=== PATIENT | male | born 1930 | race Caucasian/White ===

== ENCOUNTER 2016-08-30 13:03 | Emergency (ER) | payer MEDICARE, OTHER ==
[~2016-08-30] VITALS: Ht 182.9 cm; Wt 114.9 kg
[~2016-08-30 13:03] MED LIST: ASPI-496 PO; ATOR80TA PO; CLOP75TA22 PO; CYAN10005 PO; ERGO500017 PO; EZET10TA3 PO; FAMO20TA7 PO; HYDR-3241 PO; HYDR12.53 PO; MESA1.2T PO; METO25TA35 PO; POLY17PO5 PO
[2016-08-30] MEDS ORDERED: IRBE300T40 PO (13:34)
[2016-08-30 14:26] VITALS: BP 155/92
== END 2016-08-30 14:29 | disposition home or self-care (01) ==
LOC: ED 13:38
DX: I10 Essential (primary) hypertension (principal); K21.9 Gastro-esophageal reflux disease without esophagitis; E78.5 Hyperlipidemia, unspecified; Z86.718 Personal history of other venous thrombosis and embolism; Z90.49 Acquired absence of other specified parts of digestive tract
CPT/HCPCS: 36415; 80047; 93005

== ENCOUNTER 2016-08-31 09:40 | Emergency (ER) | payer MEDICARE, OTHER ==
[~2016-08-31] VITALS: Ht 182.9 cm; Wt 114.4 kg
[~2016-08-31 09:40] MED LIST changes: +IRBE300T40 PO
[2016-08-31 11:30] VITALS: BP 174/80
== END 2016-08-31 11:32 | disposition home or self-care (01) ==
LOC: ED 10:52
DX: I10 Essential (primary) hypertension (principal); E78.5 Hyperlipidemia, unspecified; K21.9 Gastro-esophageal reflux disease without esophagitis; Z90.49 Acquired absence of other specified parts of digestive tract; Z79.82 Long term (current) use of aspirin; Z87.891 Personal history of nicotine dependence
CPT/HCPCS: 93005; 99283

== ENCOUNTER 2016-09-28 10:15 | Emergency (ER) | payer MEDICARE, OTHER ==
[~2016-09-28] VITALS: Ht 182.9 cm; Wt 114.1 kg
[2016-09-28 10:19] VITALS: BP 180/84
== END 2016-09-28 12:46 | disposition home or self-care (01) ==
LOC: ED 12:40
DX: M79.671 Pain in right foot (principal); I10 Essential (primary) hypertension
CPT/HCPCS: 93005

== ENCOUNTER 2016-11-30 14:37 | Emergency (ER) | payer MEDICARE, OTHER ==
[~2016-11-30] VITALS: Ht 182.9 cm; Wt 110.0 kg
[2016-11-30 16:22] LABS: HEMATOCRIT 42.8 % (39.2-51.8); WHITE BLOOD COUNT 5.1 x10^3/uL (3.4-10)
[2016-11-30 16:31] LABS: BLOOD UREA NITROGEN 19 mg/dL (7-18)
[2016-11-30 16:37] LABS: IS PT STATUS REG ER OR PRE ER? YES
[2016-11-30 16:54] VITALS: BP 180/75
== END 2016-11-30 17:19 | disposition home or self-care (01) ==
LOC: ED 16:47
DX: E78.5 Hyperlipidemia, unspecified (principal); I10 Essential (primary) hypertension; K21.9 Gastro-esophageal reflux disease without esophagitis; Z86.718 Personal history of other venous thrombosis and embolism
CPT/HCPCS: 36415; 71010; 72072; 80048; 81003; 82040; 84484; 85025; 93005; 99285

== ENCOUNTER 2017-01-25 12:24 | Emergency (ER) | payer MEDICARE, OTHER ==
[~2017-01-25] VITALS: Ht 182.9 cm; Wt 114.2 kg
[~2017-01-25 12:24] MED LIST changes: -CLOP75TA22 PO; +CLOP75TA52 PO; +EZET10TA18 PO; -EZET10TA3 PO
[2017-01-25 12:25] VITALS: BP 169/73
[2017-01-25] MEDS ORDERED: DIPH,PERTUSS(ACELL),TET VAC/PF 0.5 ML IM-VACC ONE ×2 (13:00→13:11)
[2017-01-25] MEDS ORDERED: CEFAZOLIN 1,000 MG IM ONE (15:00)
[2017-01-25] MEDS ORDERED: LIDOCAINE 1%, 20ML SQ ONE (15:00)
[2017-01-25] MEDS ORDERED: BACITRACIN ZINC OINT 500U/GM, 0.9 GM ONE (15:27)
[2017-01-25] MEDS ORDERED: CEFAZOLIN 1,000 MG ONE (15:27)
== END 2017-01-25 15:51 | disposition home or self-care (01) ==
LOC: ED 13:51
DX: S62.525B Nondisplaced fracture of distal phalanx of left thumb, initial encounter for open fracture (principal); I10 Essential (primary) hypertension; K21.9 Gastro-esophageal reflux disease without esophagitis; E78.5 Hyperlipidemia, unspecified; Z86.718 Personal history of other venous thrombosis and embolism; W45.8XXA Other foreign body or object entering through skin, initial encounter; Y93.89 Activity, other specified; Y92.009 Unspecified place in unspecified non-institutional (private) residence as the place of occurrence of the external cause; Y99.9 Unspecified external cause status
CPT/HCPCS: 12002; 73140; 90471; 90715; 96372; 99284; J0690

== ENCOUNTER → 2017-05-22 | Outpatient (CLI) | payer MEDICARE, OTHER ==
[~2017-05-22] MED LIST changes: +APIX2.5T PO; +APIX5TAB PO; +HYDR25TA6 PO; +REGADENOSON 0.4 MG/5 ML SYRINGE ONE; +SULF15DR5 EACHEYE
== END | disposition home or self-care (01) ==
LOC: RAD 11:31
PROVIDERS: ATTEND Internal Medicine Cardiovascular Disease
DX: I48.91 Unspecified atrial fibrillation (principal); I45.10 Unspecified right bundle-branch block; I25.10 Atherosclerotic heart disease of native coronary artery without angina pectoris; I10 Essential (primary) hypertension
CPT/HCPCS: 78452; 93017; A9502; J2785

== ENCOUNTER 2017-07-02 10:35 | Day surgery (SDC) | payer MEDICARE, OTHER ==
[~2017-07-02] VITALS: Ht 182.9 cm; Wt 108.0 kg
[~2017-07-02 10:35] MED LIST changes: -REGADENOSON 0.4 MG/5 ML SYRINGE ONE
[2017-07-02 11:27] VITALS: BP 143/99
[2017-07-02] MEDS ORDERED: ALBUTEROL/IPRATROPIUM 2.5MG/0.5MG, 3 ML NPPB PRN (11:30)
[2017-07-02] MEDS ORDERED: MIDAZOLAM 1 MG/ML, 5ML ONE (11:44)
[2017-07-02] MEDS ORDERED: FENTANYL PF 100 MCG/2ML ONE ×2 (11:44)
[2017-07-02 12:00] LABS: BASOPHILS # (AUTO) 0.02 x10^3/uL (0-0.1); BASOPHILS % (AUTO) 0 % (0-1); EOSINOPHILS # (AUTO) 0.07 x10^3/uL (0-0.4); EOSINOPHILS % (AUTO) 1 % (1-7); LYMPHOCYTES # (AUTO) 0.75 x10^3/uL (1-3.4); LYMPHOCYTES % (AUTO) 11 % (22-44); MD NO; MEAN CORPUSCULAR HEMOGLOBIN 28.4 pg (27.5-34.5); MEAN CORPUSCULAR HGB CONC 32.7 g/dL (33.2-36.2); MEAN CORPUSCULAR VOLUME 86.9 fL (81-97); MONOCYTES # (AUTO) 0.55 x10^3/uL (0.2-0.8); MONOCYTES % (AUTO) 8 % (2-9); NEUTROPHILS # (AUTO) 5.47 x10^3/uL (1.8-6.8); NEUTROPHILS % (AUTO) 80 % (42-75); PLATELET COUNT 126 x10^3/uL (130-400); RED BLOOD COUNT 4.61 x10^6/uL (4.38-5.82); RED CELL DISTRIBUTION WIDTH 15.2 % (9.4-14.8)
[2017-07-02 12:13] LABS: ANION GAP 7 mmol/L (5-15); CHLORIDE 107 mmol/L (98-107); CREATININE 1.29 mg/dL (0.7-1.3)
[2017-07-02] MEDS ORDERED: TRAZ100T15 PO (12:16)
[2017-07-02] MEDS ORDERED: APIX2.5T PO (12:16)
[2017-07-02] MEDS ORDERED: IRBE300T16 PO (12:16)
[2017-07-02] MEDS ORDERED: PROPOFOL 10 MG/ML, 20ML ONE (12:40)
== END 2017-07-02 14:10 ==
LOC: CACL 10:35
PROVIDERS: ATTEND Internal Medicine Cardiovascular Disease
DX: I48.91 Unspecified atrial fibrillation (principal); I25.10 Atherosclerotic heart disease of native coronary artery without angina pectoris; I10 Essential (primary) hypertension; E78.5 Hyperlipidemia, unspecified; M10.9 Gout, unspecified; E66.9 Obesity, unspecified; Z68.30 Body mass index [BMI] 30.0-30.9, adult
CPT/HCPCS: 36415; 80048; 85025; 92960; 93005; J3010; J2250; J2704

== ENCOUNTER 2017-07-28 16:39 | Emergency (ER) | payer MEDICARE, OTHER ==
[~2017-07-28] VITALS: Ht 182.9 cm; Wt 102.0 kg
[~2017-07-28 16:39] MED LIST changes: +IRBE300T16 PO; +TRAZ100T15 PO
[2017-07-28 17:19] LABS: BASOPHILS # (AUTO) 0.05 x10^3/uL (0-0.1); BASOPHILS % (AUTO) 1 % (0-1); EOSINOPHILS # (AUTO) 0.26 x10^3/uL (0-0.4); EOSINOPHILS % (AUTO) 4 % (1-7); LYMPHOCYTES # (AUTO) 1.21 x10^3/uL (1-3.4); LYMPHOCYTES % (AUTO) 17 % (22-44); MD NO; MEAN CORPUSCULAR HEMOGLOBIN 28.1 pg (27.5-34.5); MEAN CORPUSCULAR HGB CONC 33.2 g/dL (33.2-36.2); MEAN CORPUSCULAR VOLUME 84.7 fL (81-97); MEAN PLATELET VOLUME 10.1 fL (7.4-10.4); MONOCYTES # (AUTO) 0.52 x10^3/uL (0.2-0.8); MONOCYTES % (AUTO) 7 % (2-9); NEUTROPHILS % (AUTO) 72 % (42-75); PLATELET COUNT 143 x10^3/uL (130-400); RED BLOOD COUNT 5.33 x10^6/uL (4.38-5.82); RED CELL DISTRIBUTION WIDTH 16.7 % (9.4-14.8)
[2017-07-28 17:31] LABS: ALBUMIN 3.4 g/dL (3.4-5.0); ANION GAP 7 mmol/L (5-15); CALCIUM 8.8 mg/dL (8.5-10.1); CHLORIDE 105 mmol/L (98-107); CREATININE 2.16 mg/dL (0.7-1.3)
[2017-07-28] MEDS ORDERED: FURO20TA3 PO (17:36)
[2017-07-28] MEDS ORDERED: FAMO-79 PO (17:36)
[2017-07-28] MEDS ORDERED: ERGO500017 PO (17:36)
[2017-07-28] MEDS ORDERED: IRBE75TA31 PO (17:36)
[2017-07-28] MEDS ORDERED: APIX5TAB PO (17:36)
[2017-07-28] MEDS ORDERED: CARV6.252 PO (17:36)
[2017-07-28] MEDS ORDERED: POTA20TA6 PO (17:36)
[2017-07-28 17:47] VITALS: BP 105/60
[2017-07-28] MEDS: SODIUM CHLORIDE 0.9%, 500ML IVBOLUS ONE (18:00)
== END 2017-07-28 18:55 | disposition home or self-care (01) ==
LOC: ED 18:05
DX: M48.54XA Collapsed vertebra, not elsewhere classified, thoracic region, initial encounter for fracture (principal); M54.6 Pain in thoracic spine; N28.9 Disorder of kidney and ureter, unspecified; R94.4 Abnormal results of kidney function studies; E78.5 Hyperlipidemia, unspecified; I11.0 Hypertensive heart disease with heart failure; K21.9 Gastro-esophageal reflux disease without esophagitis
CPT/HCPCS: 36415; 71046; 72072; 80048; 82040; 85025; 93005; 99285; J7040

== ENCOUNTER → 2017-10-30 | Outpatient (CLI) | payer MEDICARE, OTHER ==
[~2017-10-30] MED LIST changes: +CARV6.252 PO; +FAMO-79 PO; +FURO20TA3 PO; +IRBE75TA31 PO; +POTA20TA6 PO
== END | disposition home or self-care (01) ==
LOC: CFH 15:17
PROVIDERS: ATTEND Internal Medicine
DX: G31.9 Degenerative disease of nervous system, unspecified (principal); N18.3 Chronic kidney disease, stage 3 (moderate); G54.5 Neuralgic amyotrophy
CPT/HCPCS: 76770

== ENCOUNTER 2018-02-21 10:15 | Emergency (ER) | payer MEDICARE, OTHER ==
[~2018-02-21] VITALS: Ht 182.9 cm; Wt 111.0 kg
[~2018-02-21 10:15] MED LIST changes: +TRAZ-137 PO; -TRAZ100T15 PO
[2018-02-21] MEDS ORDERED: SODIUM CHLORIDE FLUSH 10ML SYR IVF ONE (11:30)
[2018-02-21 12:18] LABS: BASOPHILS # (AUTO) 0.02 x10^3/uL (0-0.1); BASOPHILS % (AUTO) 0 % (0-1); EOSINOPHILS # (AUTO) 0.06 x10^3/uL (0-0.4); EOSINOPHILS % (AUTO) 1 % (1-7); LYMPHOCYTES % (AUTO) 13 % (22-44); MD NO; MEAN CORPUSCULAR HEMOGLOBIN 29.9 pg (27.5-34.5); MEAN CORPUSCULAR HGB CONC 33.1 g/dL (33.2-36.2); MEAN CORPUSCULAR VOLUME 90.3 fL (81-97); MEAN PLATELET VOLUME 9.4 fL (7.4-10.4); MONOCYTES # (AUTO) 0.53 x10^3/uL (0.2-0.8); MONOCYTES % (AUTO) 8 % (2-9); NEUTROPHILS # (AUTO) 5.54 x10^3/uL (1.8-6.8); NEUTROPHILS % (AUTO) 79 % (42-75); PLATELET COUNT 129 x10^3/uL (130-400); RED BLOOD COUNT 4.33 x10^6/uL (4.38-5.82); RED CELL DISTRIBUTION WIDTH 14.6 % (9.4-14.8)
[2018-02-21 12:27] LABS: INTERNATIONAL NORMALIZED RATIO 1.1 (0.93-1.1); PROTHROMBIN TIME 11.4 Seconds (9.6-11.5)
[2018-02-21 12:29] LABS: ALANINE AMINOTRANSFERASE 34 U/L (12-78); ALBUMIN 3.1 g/dL (3.4-5.0); ANION GAP 7 mmol/L (5-15); CALCIUM 8.1 mg/dL (8.5-10.1); CHLORIDE 108 mmol/L (98-107); CREATININE 1.48 mg/dL (0.7-1.3)
[2018-02-21 12:33] LABS: ALKALINE PHOSPHATASE 92 U/L (45-117); BILIRUBIN,TOTAL 0.8 mg/dL (0.2-1.0); TOTAL PROTEIN 6.4 g/dL (6.4-8.2)
[2018-02-21] MEDS ORDERED: DILTIAZEM 5 MG/ML, 5ML ONE (13:57)
[2018-02-21] MEDS ORDERED: DILTIAZEM 5 MG/ML, 5ML IVPush ONE (14:00)
[2018-02-21 14:18] LABS: CULTURE INDICATED? YES; MICROSCOPIC INDICATED
[2018-02-21 15:35] VITALS: BP 112/79
== END 2018-02-21 15:37 | disposition home or self-care (01) ==
LOC: ED 14:17
DX: I48.92 Unspecified atrial flutter (principal); R00.2 Palpitations
CPT/HCPCS: 36415; 74022; 80053; 81001; 83735; 83880; 84484; 85025; 85610; 85730; 87086; 93005; 96374

== ENCOUNTER 2018-07-18 13:19 | Emergency (ER) | payer MEDICARE, OTHER ==
[~2018-07-18] VITALS: Ht 182.9 cm; Wt 108.2 kg
[~2018-07-18 13:19] MED LIST changes: +HYDR12.517 PO; -HYDR12.53 PO
[2018-07-18] MEDS ORDERED: ALBUTEROL SULFATE 2.5 MG/3 ML NPPB ONE (13:30)
[2018-07-18] MEDS ORDERED: ALBUTEROL SULFATE 2.5 MG/3 ML ONE (13:40)
--- NOTE | 2018-07-18 13:44 | NUR ---
RT AT BEDSIDE PROVIDING BREATHING TX
[2018-07-18 14:14] LABS: ALANINE AMINOTRANSFERASE 33 U/L (12-78); ALBUMIN 3.3 g/dL (3.4-5.0); ANION GAP 5 mmol/L (5-15); CALCIUM 8.5 mg/dL (8.5-10.1); CHLORIDE 108 mmol/L (98-107)
[2018-07-18 14:18] LABS: ALKALINE PHOSPHATASE 118 U/L (45-117); BILIRUBIN,TOTAL 0.9 mg/dL (0.2-1.0); TOTAL PROTEIN 7.2 g/dL (6.4-8.2); TROPONIN I < 0.015 ng/mL (0.000-0.045)
[2018-07-18] MEDS ORDERED: ALBUTEROL/IPRATROPIUM 2.5MG/0.5MG, 3 ML NPPB ONE (14:30)
[2018-07-18 15:30] VITALS: BP 106/79
[2018-07-18] MEDS ORDERED: ALBUTEROL/IPRATROPIUM 2.5MG/0.5MG, 3 ML ONE (15:36)
--- NOTE | 2018-07-18 15:42 | NUR ---
RT PROVIDING SECOND TX
== END 2018-07-18 15:56 | disposition home or self-care (01) ==
LOC: ED 14:28
DX: J20.8 Acute bronchitis due to other specified organisms (principal); J06.9 Acute upper respiratory infection, unspecified; B97.89 Other viral agents as the cause of diseases classified elsewhere; K21.9 Gastro-esophageal reflux disease without esophagitis; E78.5 Hyperlipidemia, unspecified; I10 Essential (primary) hypertension; I48.91 Unspecified atrial fibrillation; Z90.49 Acquired absence of other specified parts of digestive tract; Z95.0 Presence of cardiac pacemaker; Z87.891 Personal history of nicotine dependence
CPT/HCPCS: 36415; 71046; 80053; 83880; 84484; 93005; 94640; 99284; J7512; J7620

== ENCOUNTER 2018-08-03 14:04 | Emergency (ER) | payer MEDICARE, OTHER ==
[~2018-08-03] VITALS: Ht 182.9 cm; Wt 108.9 kg
[2018-08-03 15:58] VITALS: BP 147/118
--- NOTE | 2018-08-03 16:11 | NUR ---
Pt reports waking up with sore throat, states recently dx with bronchitis and finished his steroid prescription, denies any other s/s, states he just wants to make sure it doesnt get as bad as it did before. Denies any sob/cp
== END 2018-08-03 16:32 | disposition home or self-care (01) ==
LOC: ED 15:59
DX: J02.8 Acute pharyngitis due to other specified organisms (principal); I10 Essential (primary) hypertension; I48.91 Unspecified atrial fibrillation; I25.10 Atherosclerotic heart disease of native coronary artery without angina pectoris; E78.5 Hyperlipidemia, unspecified; K21.9 Gastro-esophageal reflux disease without esophagitis; Z90.49 Acquired absence of other specified parts of digestive tract; Z95.0 Presence of cardiac pacemaker; Z86.718 Personal history of other venous thrombosis and embolism
CPT/HCPCS: 87081; 87147; 87880; 99283

== ENCOUNTER 2019-09-17 09:56 | Inpatient (IN) | payer MEDICARE, OTHER ==
[~2019-09-17] VITALS: Ht 182.9 cm; Wt 114.8 kg
[~2019-09-17 09:56] MED LIST changes: +CYAN-27 PO; -CYAN10005 PO; -EZET10TA18 PO; +EZET10TA70 PO; -IRBE300T16 PO; +IRBE300T8 PO; -TRAZ-137 PO; +TRAZ-175 PO
--- NOTE | 2019-09-17 10:22 | NUR ---
[employer] CLERK: PT AMBULATORY TO ROOM WITH STEADY GAIT FROM LOBBY AT THIS TIME WITH EDU QUIGLEY.
--- NOTE | 2019-09-17 10:30 | NUR ---
THIS IS A 89 YEAR OLD MALE WHO C/O OF RIGHT INDEX FINGER SWELLING AND PAIN. PT HAS HX OF AFIB MAR 2017, PACEMAKER MAY 2017, CHF JUNE 2017, CARDIAC STENT, SKIN CA- BASAL CELL, DIVERTICULITIS, HTN, PERIPHERAL VASCULAR DISEASE, DVT
--- NOTE | 2019-09-17 10:51 | NUR ---
REPORT TO KAYLYN QUIGLEY, PLAN OF CARE DISCUSSED
[2019-09-17 11:16] LABS: BASOPHILS # (AUTO) 0.02 x10^3/uL (0-0.1); BASOPHILS % (AUTO) 0 % (0-1); EOSINOPHILS # (AUTO) 0.09 x10^3/uL (0-0.4); EOSINOPHILS % (AUTO) 1 % (1-7); LYMPHOCYTES # (AUTO) 0.91 x10^3/uL (1-3.4); LYMPHOCYTES % (AUTO) 11 % (22-44); MD NO; MEAN CORPUSCULAR HEMOGLOBIN 29.9 pg (27.5-34.5); MEAN CORPUSCULAR HGB CONC 32.6 g/dL (33.2-36.2); MEAN CORPUSCULAR VOLUME 91.8 fL (81-97); MEAN PLATELET VOLUME 8.7 fL (7.4-10.4); MONOCYTES # (AUTO) 0.39 x10^3/uL (0.2-0.8); MONOCYTES % (AUTO) 5 % (2-9); NEUTROPHILS # (AUTO) 6.73 x10^3/uL (1.8-6.8); NEUTROPHILS % (AUTO) 83 % (42-75); PLATELET COUNT 154 x10^3/uL (130-400); RED BLOOD COUNT 4.52 x10^6/uL (4.38-5.82); RED CELL DISTRIBUTION WIDTH 15.9 % (9.4-14.8)
[2019-09-17 11:19] LABS: HCT (SEDRATE) 41.5 % (39.2-51.8)
[2019-09-17 11:24] LABS: ALBUMIN 3.2 g/dL (3.4-5.0); ANION GAP 8 mmol/L (5-15); C-REACTIVE PROTEIN, QUANT 0.94 mg/dL (0.02-0.49); CALCIUM 8.3 mg/dL (8.5-10.1); CHLORIDE 105 mmol/L (98-107); CREATININE 1.29 mg/dL (0.7-1.3)
[2019-09-17] MEDS ORDERED: PIPERACILLIN/TAZO/PMX 3.375GM 50 ML ONE (12:28)
[2019-09-17] MEDS ORDERED: VANCOMYCIN PER PHARMACY MC ONE (12:30)
[2019-09-17] MEDS ORDERED: PIPERACILLIN/TAZO/PMX 3.375GM 50 ML IVPB ONE (12:30)
[2019-09-17] MEDS ORDERED: VANCOMYCIN 2,000 MG in SODIUM CHLORIDE 0.9% 500 ML IV ONE (12:30)
[2019-09-17] MEDS ORDERED: ACETAMINOPHEN 325 MG TABLET PO PRN (13:30)
[2019-09-17] MEDS ORDERED: VANCOMYCIN PER PHARMACY MC PRN (13:30)
[2019-09-17] MEDS ORDERED: hydrALAzine 20 MG/ML, 1ML IVPush PRN (13:30)
[2019-09-17] MEDS ORDERED: POLYETHYLENE GLYCOL 17 GM PACKET PO PRN (13:30)
[2019-09-17] MEDS ORDERED: OXYcodone IR 5MG TABLET PO PRN (13:30)
[2019-09-17] MEDS ORDERED: BISACODYL 10 MG SUPP PR PRN (13:30)
[2019-09-17] MEDS ORDERED: ONDANSETRON 2MG/ML, 2ML IVPush PRN (13:30)
[2019-09-17] MEDS ORDERED: morphine SULFATE 10 MG/ML, 1ML IVPush PRN (13:30)
[2019-09-17 14:21] VITALS: BP 107/64
[2019-09-17] MEDS ORDERED: PHARMACOKINETIC CONSULTATION MC ONE (16:00)
[2019-09-17] MEDS ORDERED: PHARMACOKINETIC MONITORING MC PRN (16:00)
[2019-09-17] MEDS: PIPERACILLIN/TAZO/PMX 3.375GM 50 ML IV SCH (18:02)
[2019-09-17] MEDS: APIXABAN 5 MG TABLET PO SCH (18:02)
[2019-09-17] MEDS: ERGOCALCIFEROL 50,000 UNIT CAPSULE PO SCH (18:02)
[2019-09-17 19:51] VITALS: BP 109/64
[2019-09-17 20:45] VITALS: BP 113/64
[2019-09-17] MEDS: MESALAMINE 1.2 GM TABLET.DR PO SCH (20:47)
[2019-09-17] MEDS: CARVEDILOL 6.25 MG TABLET PO SCH (20:48)
[2019-09-17] MEDS: METOPROLOL TARTRATE 25 MG TAB PO SCH (20:48)
[2019-09-17] MEDS: TRAZODONE 100MG TABLET PO SCH (20:48)
[2019-09-17] MEDS: ATORVASTATIN 80 MG TABLET PO SCH (20:48)
[2019-09-18] MEDS: PIPERACILLIN/TAZO/PMX 3.375GM 50 ML IV SCH ×4 (00:05→20:58)
[2019-09-18 00:29] VITALS: BP 96/62
[2019-09-18 05:50] LABS: BASOPHILS % (AUTO) 0 % (0-1); EOSINOPHILS # (AUTO) 0.09 x10^3/uL (0-0.4); EOSINOPHILS % (AUTO) 2 % (1-7); LYMPHOCYTES # (AUTO) 0.82 x10^3/uL (1-3.4); LYMPHOCYTES % (AUTO) 16 % (22-44); MD NO; MEAN CORPUSCULAR HEMOGLOBIN 29.9 pg (27.5-34.5); MEAN CORPUSCULAR HGB CONC 32.6 g/dL (33.2-36.2); MEAN CORPUSCULAR VOLUME 91.7 fL (81-97); MEAN PLATELET VOLUME 8.7 fL (7.4-10.4); MONOCYTES # (AUTO) 0.39 x10^3/uL (0.2-0.8); MONOCYTES % (AUTO) 8 % (2-9); NEUTROPHILS # (AUTO) 3.93 x10^3/uL (1.8-6.8); NEUTROPHILS % (AUTO) 75 % (42-75); PLATELET COUNT 109 x10^3/uL (130-400); RED BLOOD COUNT 3.75 x10^6/uL (4.38-5.82); RED CELL DISTRIBUTION WIDTH 16.7 % (9.4-14.8)
[2019-09-18 06:02] LABS: CALCIUM 7.9 mg/dL (8.5-10.1); CHLORIDE 109 mmol/L (98-107)
[2019-09-18 06:08] LABS: ALANINE AMINOTRANSFERASE 18 U/L (12-78); ALBUMIN 2.4 g/dL (3.4-5.0); ALKALINE PHOSPHATASE 101 U/L (45-117); ANION GAP 5 mmol/L (5-15); BILIRUBIN,TOTAL 1.2 mg/dL (0.2-1.0); CREATININE 1.12 mg/dL (0.7-1.3); TOTAL PROTEIN 5.8 g/dL (6.4-8.2)
[2019-09-18] MEDS ORDERED: POTASSIUM CHLORIDE 20 MEQ TAB.ER.PRT PO ONE (06:30)
[2019-09-18 06:46] VITALS: BP 112/65
[2019-09-18] MEDS: FUROSEMIDE 20 MG TABLET PO SCH (08:23)
[2019-09-18] MEDS: LOSARTAN 25MG TABLET PO SCH (08:23)
[2019-09-18] MEDS: CARVEDILOL 6.25 MG TABLET PO SCH ×2 (08:23→20:39)
[2019-09-18] MEDS: METOPROLOL TARTRATE 25 MG TAB PO SCH ×2 (08:23→20:39)
[2019-09-18] MEDS ORDERED: IRBESARTAN 75 MG PO SCH (09:00)
[2019-09-18] MEDS: SENNA/DOCUSATE TABLET PO SCH (09:00)
[2019-09-18] MEDS: APIXABAN 5 MG TABLET PO SCH ×3 (09:26→20:44)
[2019-09-18] MEDS: EZETIMIBE 10 MG TABLET PO SCH (09:26)
[2019-09-18] MEDS: CYANOCOBALAMIN 1,000 MCG TABLET PO SCH (09:26)
[2019-09-18] MEDS: MESALAMINE 1.2 GM TABLET.DR PO SCH ×2 (09:26→20:39)
[2019-09-18] MEDS: FAMOTIDINE 20 MG TABLET PO SCH (09:27)
[2019-09-18] MEDS: POTASSIUM CHLORIDE 20 MEQ TAB.ER.PRT PO SCH (09:28)
[2019-09-18 12:00] VITALS: BP 121/70
[2019-09-18] MEDS ORDERED: VANCOMYCIN 1,600 MG in SODIUM CHLORIDE 0.9% 250 ML IV SCH (13:00)
[2019-09-18 19:59] VITALS: BP 166/66
[2019-09-18] MEDS: ATORVASTATIN 80 MG TABLET PO SCH (20:39)
[2019-09-18] MEDS: TRAZODONE 100MG TABLET PO SCH (20:39)
[2019-09-19 00:17] VITALS: BP 103/61
[2019-09-19] MEDS: PIPERACILLIN/TAZO/PMX 3.375GM 50 ML IV SCH ×2 (02:59→08:45)
[2019-09-19 05:46] LABS: ANION GAP 8 mmol/L (5-15); CALCIUM 8.1 mg/dL (8.5-10.1); CHLORIDE 110 mmol/L (98-107); CREATININE 1.28 mg/dL (0.7-1.3)
[2019-09-19] MEDS ORDERED: POTASSIUM CHLORIDE 20 MEQ TAB.ER.PRT PO ONE (06:30)
[2019-09-19 06:57] VITALS: BP 134/66
[2019-09-19] MEDS: EZETIMIBE 10 MG TABLET PO SCH (08:45)
[2019-09-19] MEDS: FUROSEMIDE 20 MG TABLET PO SCH (08:45)
[2019-09-19] MEDS: MESALAMINE 1.2 GM TABLET.DR PO SCH ×2 (08:46→20:43)
[2019-09-19] MEDS: CYANOCOBALAMIN 1,000 MCG TABLET PO SCH (08:46)
[2019-09-19] MEDS: POTASSIUM CHLORIDE 20 MEQ TAB.ER.PRT PO SCH (08:47)
[2019-09-19] MEDS: FAMOTIDINE 20 MG TABLET PO SCH (08:47)
[2019-09-19] MEDS: METOPROLOL TARTRATE 25 MG TAB PO SCH ×2 (08:47→20:43)
[2019-09-19] MEDS: LOSARTAN 25MG TABLET PO SCH (08:47)
[2019-09-19] MEDS: CARVEDILOL 6.25 MG TABLET PO SCH ×2 (08:47→20:44)
[2019-09-19] MEDS: SENNA/DOCUSATE TABLET PO SCH (08:47)
[2019-09-19] MEDS: APIXABAN 5 MG TABLET PO SCH (08:52)
[2019-09-19] MEDS: FUROSEMIDE 40 MG TABLET PO SCH ×2 (09:30→20:44)
[2019-09-19] MEDS: AMOXICILLIN/CLAV 875-125MG TABLET PO SCH ×2 (11:52→20:43)
[2019-09-19] MEDS: DOXYCYCLINE 100MG TABLET PO SCH ×2 (11:52→20:43)
[2019-09-19 12:49] VITALS: BP 126/77
[2019-09-19 20:03] VITALS: BP 102/63
[2019-09-19 20:42] VITALS: BP 123/55
[2019-09-19] MEDS: ATORVASTATIN 80 MG TABLET PO SCH (20:43)
[2019-09-19] MEDS: APIXABAN 2.5 MG TABLET PO SCH (20:43)
[2019-09-19] MEDS: TRAZODONE 100MG TABLET PO SCH (20:44)
[2019-09-20 02:00] VITALS: BP 95/50
[2019-09-20 06:21] LABS: BASOPHILS # (AUTO) 0.01 x10^3/uL (0-0.1); BASOPHILS % (AUTO) 0 % (0-1); EOSINOPHILS # (AUTO) 0.02 x10^3/uL (0-0.4); EOSINOPHILS % (AUTO) 0 % (1-7); LYMPHOCYTES # (AUTO) 0.91 x10^3/uL (1-3.4); LYMPHOCYTES % (AUTO) 13 % (22-44); MD NO; MEAN CORPUSCULAR HEMOGLOBIN 30.6 pg (27.5-34.5); MEAN CORPUSCULAR HGB CONC 33.1 g/dL (33.2-36.2); MEAN CORPUSCULAR VOLUME 92.2 fL (81-97); MEAN PLATELET VOLUME 8.6 fL (7.4-10.4); MONOCYTES # (AUTO) 0.56 x10^3/uL (0.2-0.8); MONOCYTES % (AUTO) 8 % (2-9); NEUTROPHILS # (AUTO) 5.67 x10^3/uL (1.8-6.8); NEUTROPHILS % (AUTO) 79 % (42-75); PLATELET COUNT 115 x10^3/uL (130-400); RED BLOOD COUNT 3.65 x10^6/uL (4.38-5.82); RED CELL DISTRIBUTION WIDTH 16.3 % (9.4-14.8)
[2019-09-20 06:23] LABS: ALBUMIN 2.3 g/dL (3.4-5.0); ANION GAP 6 mmol/L (5-15); CALCIUM 8.1 mg/dL (8.5-10.1); CHLORIDE 109 mmol/L (98-107)
[2019-09-20 06:28] LABS: ALANINE AMINOTRANSFERASE 17 U/L (12-78); ALKALINE PHOSPHATASE 78 U/L (45-117); BILIRUBIN,TOTAL 1.3 mg/dL (0.2-1.0); CREATININE 1.33 mg/dL (0.7-1.3); TOTAL PROTEIN 6.1 g/dL (6.4-8.2)
[2019-09-20 07:08] VITALS: BP 107/69
[2019-09-20] MEDS: SENNA/DOCUSATE TABLET PO SCH (07:55)
[2019-09-20] MEDS ORDERED: LOPERAMIDE 2 MG CAPSULE PO PRN (08:00)
[2019-09-20] MEDS ORDERED: POTASSIUM CHLORIDE 20 MEQ TAB.ER.PRT PO ONE ×2 (08:00→13:00)
[2019-09-20] MEDS: FAMOTIDINE 20 MG TABLET PO SCH (08:11)
[2019-09-20] MEDS: EZETIMIBE 10 MG TABLET PO SCH (08:11)
[2019-09-20] MEDS: AMOXICILLIN/CLAV 875-125MG TABLET PO SCH ×2 (08:11→21:34)
[2019-09-20] MEDS: CYANOCOBALAMIN 1,000 MCG TABLET PO SCH (08:11)
[2019-09-20] MEDS: MESALAMINE 1.2 GM TABLET.DR PO SCH ×2 (08:11→21:34)
[2019-09-20] MEDS: DOXYCYCLINE 100MG TABLET PO SCH ×2 (08:12→21:34)
[2019-09-20] MEDS: METOPROLOL TARTRATE 25 MG TAB PO SCH ×2 (08:12→21:34)
[2019-09-20] MEDS: CARVEDILOL 6.25 MG TABLET PO SCH ×2 (08:12→21:34)
[2019-09-20] MEDS: FUROSEMIDE 20 MG TABLET PO SCH ×2 (08:12→21:34)
[2019-09-20] MEDS: LOSARTAN 25MG TABLET PO SCH (08:12)
[2019-09-20] MEDS: APIXABAN 2.5 MG TABLET PO SCH ×2 (08:12→21:34)
[2019-09-20] MEDS: POTASSIUM CHLORIDE 20 MEQ TAB.ER.PRT PO SCH (08:59)
[2019-09-20 14:07] VITALS: BP 109/74
[2019-09-20 20:20] VITALS: BP 115/66
[2019-09-20] MEDS: ATORVASTATIN 80 MG TABLET PO SCH (21:34)
[2019-09-20] MEDS: TRAZODONE 100MG TABLET PO SCH (21:34)
[2019-09-21 01:35] VITALS: BP 97/61
[2019-09-21 05:59] LABS: BASOPHILS # (AUTO) 0.01 x10^3/uL (0-0.1); BASOPHILS % (AUTO) 0 % (0-1); EOSINOPHILS # (AUTO) 0.06 x10^3/uL (0-0.4); EOSINOPHILS % (AUTO) 1 % (1-7); LYMPHOCYTES # (AUTO) 0.69 x10^3/uL (1-3.4); LYMPHOCYTES % (AUTO) 10 % (22-44); MD NO; MEAN CORPUSCULAR HGB CONC 32.6 g/dL (33.2-36.2); MEAN PLATELET VOLUME 9.2 fL (7.4-10.4); MONOCYTES # (AUTO) 0.46 x10^3/uL (0.2-0.8); MONOCYTES % (AUTO) 7 % (2-9); NEUTROPHILS # (AUTO) 5.47 x10^3/uL (1.8-6.8); NEUTROPHILS % (AUTO) 82 % (42-75); PLATELET COUNT 110 x10^3/uL (130-400); RED CELL DISTRIBUTION WIDTH 16.2 % (9.4-14.8)
[2019-09-21 06:09] LABS: ANION GAP 5 mmol/L (5-15); CALCIUM 8.4 mg/dL (8.5-10.1); CHLORIDE 111 mmol/L (98-107); CREATININE 1.17 mg/dL (0.7-1.3)
[2019-09-21 08:18] VITALS: BP 115/72
[2019-09-21] MEDS: SENNA/DOCUSATE TABLET PO SCH (09:00)
[2019-09-21] MEDS: MESALAMINE 1.2 GM TABLET.DR PO SCH ×2 (09:11→20:17)
[2019-09-21] MEDS: DOXYCYCLINE 100MG TABLET PO SCH (09:11)
[2019-09-21] MEDS: METOPROLOL TARTRATE 25 MG TAB PO SCH ×2 (09:11→20:18)
[2019-09-21] MEDS: APIXABAN 2.5 MG TABLET PO SCH ×2 (09:11→20:18)
[2019-09-21] MEDS: FUROSEMIDE 20 MG TABLET PO SCH ×2 (09:12→20:18)
[2019-09-21] MEDS: EZETIMIBE 10 MG TABLET PO SCH (09:12)
[2019-09-21] MEDS: POTASSIUM CHLORIDE 20 MEQ TAB.ER.PRT PO SCH (09:12)
[2019-09-21] MEDS: CYANOCOBALAMIN 1,000 MCG TABLET PO SCH (09:12)
[2019-09-21] MEDS: FAMOTIDINE 20 MG TABLET PO SCH (09:12)
[2019-09-21] MEDS: CARVEDILOL 6.25 MG TABLET PO SCH ×2 (09:12→20:18)
[2019-09-21] MEDS: AMOXICILLIN/CLAV 875-125MG TABLET PO SCH (09:12)
[2019-09-21] MEDS: LOSARTAN 25MG TABLET PO SCH (09:12)
[2019-09-21] MEDS ORDERED: VANCOMYCIN PER PHARMACY MC PRN (14:30)
[2019-09-21 14:45] VITALS: BP 96/53
[2019-09-21] MEDS ORDERED: PHARMACOKINETIC MONITORING MC PRN (15:00)
[2019-09-21] MEDS: PIPERACILLIN/TAZO/PMX 3.375GM 50 ML IV SCH ×2 (15:15→20:17)
[2019-09-21] MEDS: VANCOMYCIN 2,000 MG in SODIUM CHLORIDE 0.9% 500 ML IV SCH (16:04)
[2019-09-21] MEDS: TRAZODONE 100MG TABLET PO SCH (20:18)
[2019-09-21] MEDS: ATORVASTATIN 80 MG TABLET PO SCH (20:18)
[2019-09-21 20:30] VITALS: BP 105/66
[2019-09-22 01:00] VITALS: BP 119/77
[2019-09-22] MEDS: PIPERACILLIN/TAZO/PMX 3.375GM 50 ML IV SCH ×3 (02:32→18:07)
[2019-09-22 07:40] VITALS: BP 99/63
[2019-09-22 08:50] VITALS: BP 127/78
[2019-09-22] MEDS: FUROSEMIDE 20 MG TABLET PO SCH ×2 (08:59→20:13)
[2019-09-22] MEDS: EZETIMIBE 10 MG TABLET PO SCH (08:59)
[2019-09-22] MEDS: FAMOTIDINE 20 MG TABLET PO SCH (08:59)
[2019-09-22] MEDS: METOPROLOL TARTRATE 25 MG TAB PO SCH ×2 (08:59→20:13)
[2019-09-22] MEDS: LOSARTAN 25MG TABLET PO SCH (08:59)
[2019-09-22] MEDS: CARVEDILOL 6.25 MG TABLET PO SCH ×2 (08:59→20:13)
[2019-09-22] MEDS: MESALAMINE 1.2 GM TABLET.DR PO SCH ×2 (09:00→20:13)
[2019-09-22] MEDS: APIXABAN 2.5 MG TABLET PO SCH ×2 (09:00→20:13)
[2019-09-22] MEDS: CYANOCOBALAMIN 1,000 MCG TABLET PO SCH (09:00)
[2019-09-22] MEDS: POTASSIUM CHLORIDE 20 MEQ TAB.ER.PRT PO SCH (09:02)
[2019-09-22] MEDS: SENNA/DOCUSATE TABLET PO SCH (09:02)
[2019-09-22] MEDS ORDERED: KETOROLAC 30 MG/1 ML IVPush ONE (12:30)
[2019-09-22] MEDS: methylPREDNISolone SOD SUCC 40 MG/ML IV SCH (13:03)
[2019-09-22 14:53] LABS: ALANINE AMINOTRANSFERASE 27 U/L (12-78); ALBUMIN 2.4 g/dL (3.4-5.0); ANION GAP 7 mmol/L (5-15); CALCIUM 8.2 mg/dL (8.5-10.1); CHLORIDE 110 mmol/L (98-107)
[2019-09-22 14:55] LABS: ALKALINE PHOSPHATASE 81 U/L (45-117); BILIRUBIN,TOTAL 0.9 mg/dL (0.2-1.0); TOTAL PROTEIN 6.8 g/dL (6.4-8.2)
[2019-09-22 15:09] VITALS: BP 108/71
[2019-09-22] MEDS: VANCOMYCIN 2,000 MG in SODIUM CHLORIDE 0.9% 500 ML IV SCH (15:25)
[2019-09-22 15:57] LABS: BASOPHILS # (AUTO) 0.03 x10^3/uL (0-0.1); BASOPHILS % (AUTO) 1 % (0-1); EOSINOPHILS # (AUTO) 0.14 x10^3/uL (0-0.4); EOSINOPHILS % (AUTO) 2 % (1-7); LYMPHOCYTES # (AUTO) 0.55 x10^3/uL (1-3.4); LYMPHOCYTES % (AUTO) 9 % (22-44); MD NO; MEAN CORPUSCULAR HEMOGLOBIN 29.7 pg (27.5-34.5); MEAN CORPUSCULAR HGB CONC 32.5 g/dL (33.2-36.2); MEAN CORPUSCULAR VOLUME 91.5 fL (81-97); MONOCYTES # (AUTO) 0.24 x10^3/uL (0.2-0.8); MONOCYTES % (AUTO) 4 % (2-9); NEUTROPHILS # (AUTO) 5.17 x10^3/uL (1.8-6.8); NEUTROPHILS % (AUTO) 84 % (42-75); PLATELET COUNT 150 x10^3/uL (130-400); RED CELL DISTRIBUTION WIDTH 15.8 % (9.4-14.8)
[2019-09-22 15:58] LABS: HCT (SEDRATE) 35.6 % (39.2-51.8)
[2019-09-22 18:30] VITALS: BP 109/64
[2019-09-22] MEDS: TRAZODONE 100MG TABLET PO SCH (20:13)
[2019-09-22] MEDS: ATORVASTATIN 80 MG TABLET PO SCH (20:13)
[2019-09-22] MEDS: ALLOPURINOL 100 MG TABLET PO SCH (20:13)
[2019-09-23 00:14] VITALS: BP 107/71
[2019-09-23] MEDS: methylPREDNISolone SOD SUCC 40 MG/ML IV SCH ×2 (00:45→12:59)
[2019-09-23 08:01] VITALS: BP 118/62
[2019-09-23] MEDS: SENNA/DOCUSATE TABLET PO SCH (09:00)
[2019-09-23] MEDS: MESALAMINE 1.2 GM TABLET.DR PO SCH ×2 (09:30→20:24)
[2019-09-23] MEDS: LOSARTAN 25MG TABLET PO SCH (09:31)
[2019-09-23] MEDS: POTASSIUM CHLORIDE 20 MEQ TAB.ER.PRT PO SCH (09:31)
[2019-09-23] MEDS: CARVEDILOL 6.25 MG TABLET PO SCH ×2 (09:31→20:25)
[2019-09-23] MEDS: FAMOTIDINE 20 MG TABLET PO SCH (09:31)
[2019-09-23] MEDS: DOXYCYCLINE 100MG CAP PO SCH ×2 (09:31→20:24)
[2019-09-23] MEDS: FUROSEMIDE 20 MG TABLET PO SCH ×2 (09:32→20:25)
[2019-09-23] MEDS: APIXABAN 2.5 MG TABLET PO SCH ×2 (09:32→20:24)
[2019-09-23] MEDS: METOPROLOL TARTRATE 25 MG TAB PO SCH ×2 (09:32→20:25)
[2019-09-23] MEDS: EZETIMIBE 10 MG TABLET PO SCH (09:32)
[2019-09-23] MEDS: CYANOCOBALAMIN 1,000 MCG TABLET PO SCH (09:33)
[2019-09-23] MEDS: ALLOPURINOL 100 MG TABLET PO SCH ×2 (09:33→20:24)
[2019-09-23 13:11] VITALS: BP 123/73
[2019-09-23 19:52] VITALS: BP 137/78
[2019-09-23] MEDS: ATORVASTATIN 80 MG TABLET PO SCH (20:24)
[2019-09-23] MEDS: TRAZODONE 100MG TABLET PO SCH (20:24)
[2019-09-24] MEDS: methylPREDNISolone SOD SUCC 40 MG/ML IV SCH ×2 (00:48→12:47)
[2019-09-24 02:03] VITALS: BP 113/66
[2019-09-24 07:00] VITALS: BP 115/65
[2019-09-24 08:52] VITALS: BP 130/74
[2019-09-24] MEDS: MESALAMINE 1.2 GM TABLET.DR PO SCH (08:56)
[2019-09-24] MEDS: DOXYCYCLINE 100MG CAP PO SCH (08:56)
[2019-09-24] MEDS: APIXABAN 2.5 MG TABLET PO SCH (08:57)
[2019-09-24] MEDS: CARVEDILOL 6.25 MG TABLET PO SCH (08:57)
[2019-09-24] MEDS: POTASSIUM CHLORIDE 20 MEQ TAB.ER.PRT PO SCH (08:57)
[2019-09-24] MEDS: METOPROLOL TARTRATE 25 MG TAB PO SCH (08:57)
[2019-09-24] MEDS: EZETIMIBE 10 MG TABLET PO SCH (08:57)
[2019-09-24] MEDS: FAMOTIDINE 20 MG TABLET PO SCH (08:57)
[2019-09-24] MEDS: LOSARTAN 25MG TABLET PO SCH (08:57)
[2019-09-24] MEDS: CYANOCOBALAMIN 1,000 MCG TABLET PO SCH (08:57)
[2019-09-24] MEDS: SENNA/DOCUSATE TABLET PO SCH (08:58)
[2019-09-24] MEDS: ALLOPURINOL 100 MG TABLET PO SCH (08:58)
[2019-09-24] MEDS: FUROSEMIDE 20 MG TABLET PO SCH (08:58)
[2019-09-24] MEDS: ERGOCALCIFEROL 50,000 UNIT CAPSULE PO SCH (12:51)
[2019-09-24 13:25] VITALS: BP 136/79
[2019-09-24] MEDS ORDERED: ALLO300T PO (14:41)
[2019-09-24] MEDS ORDERED: DOXY100T PO (14:41)
== END 2019-09-24 18:30 | disposition home health service (06) | DRG 558 ==
LOC: ED 12:20 → EDIP 13:06 → 3N 14:20
PROVIDERS: ADMIT Internal Medicine; ATTEND Internal Medicine
DX: M65.141 Other infective (teno)synovitis, right hand (principal); D68.69 Other thrombophilia; K51.90 Ulcerative colitis, unspecified, without complications; L03.011 Cellulitis of right finger; E87.6 Hypokalemia; I48.91 Unspecified atrial fibrillation; G62.9 Polyneuropathy, unspecified; J44.9 Chronic obstructive pulmonary disease, unspecified; E78.5 Hyperlipidemia, unspecified; I10 Essential (primary) hypertension; I25.10 Atherosclerotic heart disease of native coronary artery without angina pectoris; M10.9 Gout, unspecified; K21.9 Gastro-esophageal reflux disease without esophagitis; E66.9 Obesity, unspecified; Z79.01 Long term (current) use of anticoagulants; Z87.891 Personal history of nicotine dependence; Z90.49 Acquired absence of other specified parts of digestive tract; Z95.5 Presence of coronary angioplasty implant and graft; Z68.34 Body mass index [BMI] 34.0-34.9, adult
CPT/HCPCS: 36415; 80048; 80053; 82040; 82565; 83735; 84550; 85025; 85651; 86140; 96365; 96366; 96367; 99285; G0378; J1885; J2543; J3370; J2920; J7040; J7050

== ENCOUNTER 2019-10-27 17:48 | Emergency (ER) | payer MEDICARE, OTHER ==
[~2019-10-27] VITALS: Ht 182.9 cm; Wt 110.4 kg
[~2019-10-27 17:48] MED LIST changes: +ALLO300T PO; +DOXY100T PO
[2019-10-27 19:13] LABS: BASOPHILS # (AUTO) 0.01 x10^3/uL (0-0.1); BASOPHILS % (AUTO) 0 % (0-1); EOSINOPHILS # (AUTO) 0.08 x10^3/uL (0-0.4); EOSINOPHILS % (AUTO) 1 % (1-7); LYMPHOCYTES # (AUTO) 0.78 x10^3/uL (1-3.4); LYMPHOCYTES % (AUTO) 10 % (22-44); MD NO; MEAN CORPUSCULAR HEMOGLOBIN 28.8 pg (27.5-34.5); MEAN CORPUSCULAR HGB CONC 31.7 g/dL (33.2-36.2); MEAN CORPUSCULAR VOLUME 91.1 fL (81-97); MEAN PLATELET VOLUME 8.5 fL (7.4-10.4); MONOCYTES # (AUTO) 0.45 x10^3/uL (0.2-0.8); MONOCYTES % (AUTO) 6 % (2-9); NEUTROPHILS # (AUTO) 6.35 x10^3/uL (1.8-6.8); NEUTROPHILS % (AUTO) 83 % (42-75); PLATELET COUNT 169 x10^3/uL (130-400); RED CELL DISTRIBUTION WIDTH 15.7 % (9.4-14.8)
[2019-10-27 19:17] LABS: ANION GAP 5 mmol/L (5-15); CALCIUM 8.1 mg/dL (8.5-10.1); CHLORIDE 106 mmol/L (98-107); CREATININE 1.11 mg/dL (0.7-1.3)
--- NOTE | 2019-10-27 19:52 | NUR ---
Pt to room from lobby at this time.
[2019-10-27 20:01] VITALS: BP 138/74
--- NOTE | 2019-10-27 20:37 | NUR ---
ALL TESTS RESULTED. PT IS UP FOR RECHECK AT THIS TIME.
[2019-10-27] MEDS ORDERED: HYDROcodone/APAP 5/325 TABLET ONE (20:52)
[2019-10-27] MEDS ORDERED: HYDROcodone/APAP 5/325 TABLET PO ONE (21:00)
--- NOTE | 2019-10-27 21:05 | NUR ---
MED NOT GIVEN PATIENT IS DRIVING HOME. NOTIFIED
--- NOTE | 2019-10-27 21:15 | NUR ---
Patient given discharge instructions and they have confirmed that they understand the instructions. Patient ambulatory in room, requested wheelchair to discharge.
== END 2019-10-27 21:16 | disposition home or self-care (01) ==
LOC: ED 20:50
DX: G89.29 Other chronic pain (principal); M79.641 Pain in right hand; M79.644 Pain in right finger(s); M1A.0410 Idiopathic chronic gout, right hand, without tophus (tophi)
CPT/HCPCS: 36415; 80048; 82040; 84550; 85025; 99284

== ENCOUNTER 2019-11-14 04:37 | Emergency (ER) | payer MEDICARE, OTHER ==
[~2019-11-14] VITALS: Ht 182.9 cm; Wt 109.0 kg
[2019-11-14] MEDS ORDERED: KETOROLAC 30 MG/1 ML ONE (05:06)
--- NOTE | 2019-11-14 05:12 | NUR ---
C/O LEFT KNEE PAIN X3 DAYS. PT STATES HE HAD CORTISONE INJECTIONS 25 YEARS AGO. XRAY AT BEDSIDE.
[2019-11-14] MEDS ORDERED: KETOROLAC 30 MG/1 ML IM ONE (05:30)
--- NOTE | 2019-11-14 06:52 | NUR ---
REPORT GIVEN TO RUT QUIGLEY.
[2019-11-14 07:14] VITALS: BP 93/69
== END 2019-11-14 07:16 | disposition home or self-care (01) ==
LOC: ED 05:17
DX: M25.462 Effusion, left knee (principal); I25.10 Atherosclerotic heart disease of native coronary artery without angina pectoris; I48.91 Unspecified atrial fibrillation; I48.92 Unspecified atrial flutter; E78.5 Hyperlipidemia, unspecified; M10.9 Gout, unspecified; K21.9 Gastro-esophageal reflux disease without esophagitis; I10 Essential (primary) hypertension; Z86.718 Personal history of other venous thrombosis and embolism
CPT/HCPCS: 73564; 96372; 99283; J1885

== ENCOUNTER 2019-12-07 13:06 | Emergency (ER) | payer MEDICARE, OTHER ==
[~2019-12-07] VITALS: Ht 182.9 cm; Wt 108.0 kg
[2019-12-07 13:12] VITALS: BP 117/65
[2019-12-07 16:08] LABS: BASOPHILS # (AUTO) 0.01 x10^3/uL (0-0.1); BASOPHILS % (AUTO) 0 % (0-1); EOSINOPHILS # (AUTO) 0.08 x10^3/uL (0-0.4); EOSINOPHILS % (AUTO) 1 % (1-7); LYMPHOCYTES # (AUTO) 0.92 x10^3/uL (1-3.4); LYMPHOCYTES % (AUTO) 15 % (22-44); MD NO; MEAN CORPUSCULAR HEMOGLOBIN 28.5 pg (27.5-34.5); MEAN CORPUSCULAR HGB CONC 32.4 g/dL (33.2-36.2); MEAN CORPUSCULAR VOLUME 87.9 fL (81-97); MEAN PLATELET VOLUME 9.3 fL (7.4-10.4); MONOCYTES # (AUTO) 0.35 x10^3/uL (0.2-0.8); MONOCYTES % (AUTO) 6 % (2-9); NEUTROPHILS # (AUTO) 4.78 x10^3/uL (1.8-6.8); NEUTROPHILS % (AUTO) 78 % (42-75); PLATELET COUNT 171 x10^3/uL (130-400); RED BLOOD COUNT 4.73 x10^6/uL (4.38-5.82); RED CELL DISTRIBUTION WIDTH 17.1 % (9.4-14.8)
[2019-12-07 16:17] LABS: ALBUMIN 3.2 g/dL (3.4-5.0); ANION GAP 6 mmol/L (5-15); CALCIUM 8.6 mg/dL (8.5-10.1); CHLORIDE 109 mmol/L (98-107)
[2019-12-07 16:23] LABS: ALANINE AMINOTRANSFERASE 29 U/L (12-78); ALKALINE PHOSPHATASE 135 U/L (45-117); CREATININE 1.12 mg/dL (0.7-1.3)
[2019-12-07 16:53] LABS: HCT (SEDRATE) 41.6 % (39.2-51.8)
== END 2019-12-07 17:33 | disposition home or self-care (01) ==
LOC: ED 14:47
DX: L03.113 Cellulitis of right upper limb (principal); I10 Essential (primary) hypertension; I25.10 Atherosclerotic heart disease of native coronary artery without angina pectoris; I48.91 Unspecified atrial fibrillation; I48.92 Unspecified atrial flutter; K21.9 Gastro-esophageal reflux disease without esophagitis; M10.9 Gout, unspecified; Z90.49 Acquired absence of other specified parts of digestive tract; Z86.718 Personal history of other venous thrombosis and embolism; Z95.0 Presence of cardiac pacemaker; Z87.891 Personal history of nicotine dependence
CPT/HCPCS: 36415; 80053; 84550; 85025; 85651; 99283

== ENCOUNTER 2019-12-18 07:46 | Emergency (ER) | payer MEDICARE, OTHER ==
[~2019-12-18] VITALS: Ht 182.9 cm; Wt 109.0 kg
[2019-12-18 07:47] VITALS: BP 150/87
--- NOTE | 2019-12-18 08:41 | NUR ---
PT AMBULATORY TO ROOM 9 W/ C/O R HAND SWELLING. PT STATES HE HAS INFECTION TO R HAND WAS PLACED ON ABX W/ RELIEF BUT STATES IT IS STILL THERE. NO REDNESS/HEAT NOTED. PT NOTED TO HAVE SWELLING. PT RESTING IN CHAIR. NADN. CHUCKIE NÚÑEZ AT BEDSIDE.
== END 2019-12-18 08:59 | disposition home or self-care (01) ==
LOC: ED 08:20
DX: L03.113 Cellulitis of right upper limb (principal); E78.5 Hyperlipidemia, unspecified; I25.10 Atherosclerotic heart disease of native coronary artery without angina pectoris; I48.91 Unspecified atrial fibrillation; I48.92 Unspecified atrial flutter; I10 Essential (primary) hypertension; K21.9 Gastro-esophageal reflux disease without esophagitis; M10.9 Gout, unspecified; Z87.891 Personal history of nicotine dependence
CPT/HCPCS: 99281

== ENCOUNTER → 2020-01-11 | Outpatient (CLI) | payer MEDICARE, OTHER ==
[~2020-01-11] MED LIST changes: +OMNIPAQUE 350 MG/ML, 100ML BOTTLE ONE
== END | disposition home or self-care (01) ==
LOC: CFH 12:48
PROVIDERS: ATTEND Internal Medicine
DX: L03.113 Cellulitis of right upper limb (principal); M79.641 Pain in right hand; N18.3 Chronic kidney disease, stage 3 (moderate); M19.031 Primary osteoarthritis, right wrist
CPT/HCPCS: 73201; 82565; Q9967

== ENCOUNTER 2020-06-25 12:51 | Emergency (ER) | payer MEDICARE, OTHER ==
[~2020-06-25] VITALS: Ht 182.9 cm; Wt 108.0 kg
[~2020-06-25 12:51] MED LIST changes: -OMNIPAQUE 350 MG/ML, 100ML BOTTLE ONE
--- NOTE | 2020-06-25 13:20 | NUR ---
PT BROUGHT BACK TO ROOM FROM TRIAGE. PT CO DIARRHEA AND BLOODY STOOL X2 WEEKS. PT DENIES ANY ABDOMINAL PAIN. PT WAS SCHEDULEDFRO A COLONOSCOPY BACK IN MARCH, BUT CANCELLED D/T SNOW. PT IS ON ELIQUIS. PT DENIES ANY N/V.
[2020-06-25] MEDS ORDERED: FAMOTIDINE 20 MG/2 ML ONE (13:30)
[2020-06-25] MEDS ORDERED: FAMOTIDINE 20 MG/2 ML IVPush ONE (13:30)
[2020-06-25] MEDS ORDERED: SODIUM CHLORIDE 0.9% 1,000ML IVBOLUS ONE (13:30)
[2020-06-25] MEDS ORDERED: SODIUM CHLORIDE FLUSH 10ML SYR IVF ONE (13:30)
[2020-06-25 13:50] LABS: BASOPHILS % (AUTO) 0 % (0-1); EOSINOPHILS % (AUTO) 2 % (1-7); LYMPHOCYTES % (AUTO) 15 % (22-44); MEAN CORPUSCULAR HGB CONC 33.9 g/dL (33.2-36.2); MEAN PLATELET VOLUME 9.1 fL (7.4-10.4); MONOCYTES % (AUTO) 7 % (2-9); NEUTROPHILS % (AUTO) 77 % (42-75); PLATELET COUNT 166 x10^3/uL (130-400); RED BLOOD COUNT 4.96 x10^6/uL (4.38-5.82); RED CELL DISTRIBUTION WIDTH 16.2 % (9.4-14.8)
[2020-06-25 13:53] LABS: MD NO
[2020-06-25 13:57] LABS: INTERNATIONAL NORMALIZED RATIO 1.15 (0.93-1.1); PROTHROMBIN TIME 12.3 Seconds (9.6-11.5)
[2020-06-25 13:58] LABS: ALANINE AMINOTRANSFERASE 36 U/L (12-78); ALBUMIN 3.3 g/dL (3.4-5.0); ANION GAP 6 mmol/L (5-15); CHLORIDE 109 mmol/L (98-107); CREATININE 1.22 mg/dL (0.7-1.3)
[2020-06-25 13:59] LABS: ALKALINE PHOSPHATASE 159 U/L (45-117); BILIRUBIN,TOTAL 1.2 mg/dL (0.2-1.0); TOTAL PROTEIN 7.3 g/dL (6.4-8.2)
--- NOTE | 2020-06-25 16:08 | NUR ---
PT RESTING, PLAN FOR ADMIT.
[2020-06-25 16:28] VITALS: BP 116/68
--- NOTE | 2020-06-25 17:01 | NUR ---
MD MENDEZ AT BEDSIDE. PLAN FOR DC. PT AGREES.
--- NOTE | 2020-06-25 17:04 | NUR ---
Patient given discharge instructions and they have confirmed that they understand the instructions. Patient ambulatory with steady gait.
--- NOTE | 2020-06-25 17:07 | NUR ---
TASK RN: DC EDUCATION PROVIDED, PT DEMONSTRATES UNDERSTANDING. PT OFF MONITORING AND IS UP TO DRESS SELF
[2020-06-25] MEDS ORDERED: MESALAMINE 1.2 GM TABLET.DR PO SCH (21:00)
== END 2020-06-25 17:10 | disposition home or self-care (01) ==
LOC: ED 14:07 → SUATTDRO 16:38 → ED 17:10
PROVIDERS: ATTEND Internal Medicine
DX: K92.1 Melena (principal); I10 Essential (primary) hypertension; I48.91 Unspecified atrial fibrillation; I48.92 Unspecified atrial flutter; Z90.49 Acquired absence of other specified parts of digestive tract; Z95.0 Presence of cardiac pacemaker; Z86.718 Personal history of other venous thrombosis and embolism
CPT/HCPCS: 36415; 80053; 83605; 85025; 85610; 85730; 96361; 96374; 99283; J7030

== ENCOUNTER 2020-08-11 10:22 | Emergency (ER) | payer MEDICARE, OTHER ==
[~2020-08-11] VITALS: Ht 182.9 cm; Wt 109.3 kg
--- NOTE | 2020-08-11 10:26 | NUR ---
N/A x1 from tirartie
--- NOTE | 2020-08-11 10:44 | NUR ---
PT TO ROOM 10 W/ C/O BILAT NEUROPATHY PAIN STARTED 2 MONTHS AGO PAIN WORSE TODAY. PT STATES "IT'S LIKE SHARP NEEDLES WHEN I WALK IT ALMOST MAKES ME WANT TO CRY" PT DENIES USING ANY MEDS FOR NEUROPATHY. PT RESTING ON [facility]. NADN. MONITORS APPLIED. PT DENIES HX DM.
[2020-08-11 11:21] LABS: BASOPHILS % (AUTO) 1 % (0-1); EOSINOPHILS % (AUTO) 1 % (1-7); LYMPHOCYTES % (AUTO) 14 % (22-44); MEAN CORPUSCULAR HEMOGLOBIN 29.6 pg (27.5-34.5); MEAN CORPUSCULAR HGB CONC 33.2 g/dL (33.2-36.2); MEAN PLATELET VOLUME 8.6 fL (7.4-10.4); MONOCYTES % (AUTO) 8 % (2-9); NEUTROPHILS % (AUTO) 77 % (42-75); PLATELET COUNT 138 x10^3/uL (130-400); RED BLOOD COUNT 4.56 x10^6/uL (4.38-5.82); RED CELL DISTRIBUTION WIDTH 14.9 % (9.4-14.8)
[2020-08-11 11:24] LABS: MD NO
--- NOTE | 2020-08-11 11:26 | NUR ---
PT RESTING IN BED. VSS.
[2020-08-11 11:31] LABS: ANION GAP 7 mmol/L (5-15); CALCIUM 8.3 mg/dL (8.5-10.1); CHLORIDE 108 mmol/L (98-107); CREATININE 1.29 mg/dL (0.7-1.3)
[2020-08-11 11:35] VITALS: BP 106/79
--- NOTE | 2020-08-11 11:35 | NUR ---
Kath vera in [facility] - 08/11/20 at 1136 by SARIAHH pt ambulates to bathroom without complications
--- NOTE | 2020-08-11 11:36 | NUR ---
pt ambulates to bathroom without complications
== END 2020-08-11 12:27 | disposition home or self-care (01) ==
LOC: ED 12:21
DX: G62.9 Polyneuropathy, unspecified (principal); M54.5 Low back pain; I10 Essential (primary) hypertension
CPT/HCPCS: 36415; 80048; 82040; 84443; 85025; 99283

== ENCOUNTER 2020-09-04 09:31 | Emergency (ER) | payer MEDICARE, OTHER ==
[~2020-09-04] VITALS: Ht 182.9 cm; Wt 113.0 kg
--- NOTE | 2020-09-04 10:30 | NUR ---
Pt ambulatory to restroom and back without issues or changes in condition.
[2020-09-04 11:04] VITALS: BP 136/67
== END 2020-09-04 11:06 | disposition home or self-care (01) ==
LOC: ED 09:53
DX: B02.9 Zoster without complications (principal); I25.10 Atherosclerotic heart disease of native coronary artery without angina pectoris; E78.5 Hyperlipidemia, unspecified; I48.91 Unspecified atrial fibrillation; I48.92 Unspecified atrial flutter; K21.9 Gastro-esophageal reflux disease without esophagitis; I10 Essential (primary) hypertension; Z86.718 Personal history of other venous thrombosis and embolism
CPT/HCPCS: 99283

== ENCOUNTER 2021-01-08 00:18 | Emergency (ER) | payer MEDICARE, OTHER ==
[~2021-01-08] VITALS: Ht 182.9 cm; Wt 109.3 kg
[~2021-01-08 00:18] MED LIST changes: +POTA-143 PO; -POTA20TA6 PO
[2021-01-08 00:22] VITALS: BP 129/70
[2021-01-08 00:56] LABS: BASOPHILS % (AUTO) 0 % (0-1); EOSINOPHILS % (AUTO) 1 % (1-7); LYMPHOCYTES % (AUTO) 15 % (22-44); MEAN CORPUSCULAR HEMOGLOBIN 30.8 pg (27.5-34.5); MEAN CORPUSCULAR HGB CONC 33.7 g/dL (33.2-36.2); MEAN PLATELET VOLUME 8.5 fL (7.4-10.4); MONOCYTES % (AUTO) 7 % (2-9); NEUTROPHILS % (AUTO) 77 % (42-75); PLATELET COUNT 162 x10^3/uL (130-400); RED BLOOD COUNT 4.39 x10^6/uL (4.38-5.82); RED CELL DISTRIBUTION WIDTH 15.1 % (9.4-14.8)
--- NOTE | 2021-01-08 00:59 | NUR ---
PATIENT REPORTS RIGHT ELBOW SWELLING X4 DAYS AFTER RECIEVING HIS FLU SHOT. PATIENT ATTEMPTED ICE AND MEDICATION AT HOME WITH NO IMPROVEMENT.
[2021-01-08 01:10] LABS: ALANINE AMINOTRANSFERASE 25 U/L (12-78); ANION GAP 6 mmol/L (5-15); CALCIUM 8.3 mg/dL (8.5-10.1); CHLORIDE 104 mmol/L (98-107); CREATININE 1.15 mg/dL (0.7-1.3)
[2021-01-08 01:12] LABS: ALKALINE PHOSPHATASE 118 U/L (45-117); BILIRUBIN,TOTAL 1.1 mg/dL (0.2-1.0); TOTAL PROTEIN 7.4 g/dL (6.4-8.2)
[2021-01-08] MEDS ORDERED: DEXAMETHASONE 4 MG TABLET PO ONE (03:00)
[2021-01-08] MEDS ORDERED: IBUPROFEN 800 MG TABLET PO ONE (03:00)
[2021-01-08] MEDS ORDERED: IBUPROFEN 800 MG TABLET ONE (03:40)
[2021-01-08] MEDS ORDERED: DEXAMETHASONE 4 MG TABLET ONE (03:41)
== END 2021-01-08 04:09 ==
LOC: ED 01:00
DX: M70.21 Olecranon bursitis, right elbow (principal); I10 Essential (primary) hypertension; I25.10 Atherosclerotic heart disease of native coronary artery without angina pectoris; I48.91 Unspecified atrial fibrillation; I48.92 Unspecified atrial flutter; Z90.49 Acquired absence of other specified parts of digestive tract; Z86.718 Personal history of other venous thrombosis and embolism; Z87.891 Personal history of nicotine dependence
CPT/HCPCS: 36415; 80053; 85025; 99284